=== PATIENT | male | born 1980 | race Hispanic/Latino ===

== ENCOUNTER 2020-04-06 21:05 | Emergency (ER) | payer SELFPAY ==
--- NOTE | 2020-04-06 23:18 | ER ---
Nurse's Notes [facility] Name: Lamin Ludwig Jr Age: 39 yrs Sex: Male : 1980 Arrival Date: 04/06/2020 Time: 21:11 Bed 21 Private MD: Diagnosis: Abuse of non-psychoactive substances-hx of;Paranoid personality disorder Presentation: 04/06 21:12 Chief complaint: [facility] reports he was hallucinating and having a mental episode, em mental health deputy on scene told PD to bring him to the ED, pt A\\T\\Ox4 denies SI/HI, states there are people under his house with gorilla masks. Coronavirus screen: Client denies travel out of the [place] in the last 14 days. Ebola Screen: Patient negative for fever greater than or equal to 101.5 degrees Fahrenheit, and additional compatible Ebola Virus Disease symptoms Patient denies exposure to infectious person. Patient denies travel to an Ebola-affected area in the 21 days before illness onset. No symptoms or risks identified at this time. Initial Sepsis Screen: Does the patient meet any 2 criteria? HR > 90 bpm. No. Patient's initial sepsis screen is negative. Does the patient have a suspected source of infection? No. Patient's initial sepsis screen is negative. Risk Assessment: Do you want to hurt yourself or someone else? Patient reports no desire to harm self or others. Onset of symptoms was April 06, 2020. 21:12 Method Of Arrival: Law Enforcement: [facility] em 21:12 Acuity: AARON 2 em Historical: - Allergies: 21:16 No Known Allergies; em - PMHx: 21:16 None; em - PSHx: 21:16 None; em - Immunization history:: Adult Immunizations up to date. - Social history:: Smoking status: Patient reports the use of cigarette tobacco products, smokes one pack cigarettes per day. Screenin:12 Abuse screen: Denies threats or abuse. Nutritional screening: No deficits noted. em Tuberculosis screening: No symptoms or risk factors identified. Fall Risk None identified. Assessment: 21:12 General: Appears in no apparent distress. comfortable, unkempt, Behavior is calm, em cooperative. Pain: Denies pain. Neuro: Level of Consciousness is awake, alert, obeys commands, Oriented to person, place, time, situation, Appropriate for age. Cardiovascular: Capillary refill < 3 seconds Patient's skin is warm and dry. Respiratory: Airway is patent Respiratory effort is even, unlabored, Respiratory pattern is regular, symmetrical. Derm: Skin is intact, is healthy with good turgor, Skin is pink, warm \\T\\ dry. Musculoskeletal: Capillary refill < 3 seconds, Range of motion: intact in all extremities. 21:37 Reassessment: refuses IV and blood work because doesn't want anyone to have record of em it. Psych: 21:12 Camp Suicide Severity Screening: In the past month, have you wished you were em or wished you could go to sleep and not wake up? Patient responds "No." "In the past month, have you actually had any thoughts of killing yourself?" Patient responds "no." "In your lifetime, have you ever done anything, started to do anything, or prepared to do anything to end your life?" Patient responds "no.". Subjective: Delusions are denied, Hallucinations are denied. Objective: Patient is cooperative. Interventions: Searched person for dangerous items. Suicide Risk Assessment: Sad Person Scale: Sex of patient: Male: Score 1 point. Age of patient: Score 0 point if patient falls outside of specified age parameters. Pt denies substance abuse. Commitment: Patient will be a voluntary commitment. Vital Signs: 21:12 BP 138 / 92; Pulse 108; Resp 18; Temp 97.8(O); Pulse Ox 97% on R/A; Weight 117.93 kg; em Height 5 ft. 11 in. (180.34 cm); Pain 0/10; 21:12 Body Mass Index 36.26 (117.93 kg, 180.34 cm) em ED Course: 21:11 Patient arrived in ED. em 21:12 Choco Landis MD is Attending Physician. kirby 21:12 Patient has correct armband on for positive identification. em 21:15 Triage completed. em 21:16 Arm band placed on. em 21:17 Harsha Mederos, MACO is Primary Nurse. em 23:17 Ar Amaral MD is Referral Physician. kirby 23:37 Patient did not have IV access during this emergency room visit. em 23:37 No provider procedures requiring assistance completed. em Administered Medications: 23:19 Not Given (Patient Refused): NS 0.9% 1000 ml IV at 1 bolus Per protocol; 1000 mL bolus em Outcome: 23:17 Discharge ordered by . kirby 23:37 Discharged to home ambulatory, with family. em 23:37 Condition: stable 23:37 Discharge instructions given to patient, family, Instructed on discharge instructions, follow up and referral plans. Demonstrated understanding of instructions, follow-up care. 23:39 Patient left the ED. em Signatures: Choco Landis MD MD cha Munoz, Edgar, RN RN em
--- NOTE | 2020-04-06 23:18 | EDPHYS ---
Physician Documentation [facility] Name: Lamin Ludwig Jr Age: 39 yrs Sex: Male : 1980 Arrival Date: 04/06/2020 Time: 21:11 Bed 21 Private MD: ED Physician Choco Landis HPI: 04/06 23:08 This 39 yrs old Male presents to ER via Law Enforcement with complaints of kirby Psych Problem. 23:08 The patient presents to the emergency department with paranoia. Onset: The kirby symptoms/episode began/occurred yesterday. Past psychiatric history: Prior diagnosis: no previous psychiatric diagnosis known. Associated signs and symptoms: Pertinent positives; hallucinations, paranoia. Severity of symptoms: At their worst the symptoms were mild in the emergency department the symptoms are unchanged. It is unknown whether or not the patient has had similar symptoms in the past. Historical: - Allergies: 21:16 No Known Allergies; em - PMHx: 21:16 None; em - PSHx: 21:16 None; em - Immunization history:: Adult Immunizations up to date. - Social history:: Smoking status: Patient reports the use of cigarette tobacco products, smokes one pack cigarettes per day. ROS: 23:11 Constitutional: Negative for fever, chills, and weight loss, Eyes: Negative for injury, kirby pain, redness, and discharge, ENT: Negative for injury, pain, and discharge, Neck: Negative for injury, pain, and swelling, Cardiovascular: Negative for chest pain, palpitations, and edema, Respiratory: Negative for shortness of breath, cough, wheezing, and pleuritic chest pain, Abdomen/GI: Negative for abdominal pain, nausea, vomiting, diarrhea, and constipation, Back: Negative for injury and pain, : Negative for injury, bleeding, discharge, and swelling, MS/Extremity: Negative for injury and deformity, Skin: Negative for injury, rash, and discoloration, Neuro: Negative for headache, weakness, numbness, tingling, and seizure, Allergy/Immunology: Negative for hives, rash, and allergies, Endocrine: Negative for neck swelling, polydipsia, polyuria, polyphagia, and marked weight changes, Hematologic/Lymphatic: Negative for swollen nodes, abnormal bleeding, and unusual bruising. 23:11 Psych: Positive for visual hallucinations, not homicidal, not suicidal, alert and oriented x 4. Exam: 23:12 Constitutional: This is a well developed, well nourished patient who is awake, alert, kirby and in no acute distress. Head/Face: Normocephalic, atraumatic. Eyes: Pupils equal round and reactive to light, extra-ocular motions intact. Lids and lashes normal. Conjunctiva and sclera are non-icteric and not injected. Cornea within normal limits. Periorbital areas with no swelling, redness, or edema. ENT: Nares patent. No nasal discharge, no septal abnormalities noted. Tympanic membranes are normal and external auditory canals are clear. Oropharynx with no redness, swelling, or masses, exudates, or evidence of obstruction, uvula midline. Mucous membranes moist. Neck: Trachea midline, no thyromegaly or masses palpated, and no cervical lymphadenopathy. Supple, full range of motion without nuchal rigidity, or vertebral point tenderness. No Meningismus. Chest/axilla: Normal chest wall appearance and motion. Nontender with no deformity. No lesions are appreciated. Cardiovascular: Regular rate and rhythm with a normal S1 and S2. No gallops, murmurs, or rubs. Normal PMI, no JVD. No pulse deficits. Respiratory: Lungs have equal breath sounds bilaterally, clear to auscultation and percussion. No rales, rhonchi or wheezes noted. No increased work of breathing, no retractions or nasal flaring. Abdomen/GI: Soft, non-tender, with normal bowel sounds. No distension or tympany. No guarding or rebound. No evidence of tenderness throughout. Back: No spinal tenderness. No costovertebral tenderness. Full range of motion. Male : Normal genitalia with no discharge or lesions. Skin: Warm, dry with normal turgor. Normal color with no rashes, no lesions, and no evidence of cellulitis. MS/ Extremity: Pulses equal, no cyanosis. Neurovascular intact. Full, normal range of motion. Neuro: Awake and alert, GCS 15, oriented to person, place, time, and situation. Cranial nerves II-XII grossly intact. Motor strength 5/5 in all extremities. Sensory grossly intact. Cerebellar exam normal. Normal gait. 23:12 Psych: Behavior/mood is pleasant, cooperative, Affect is animated, Oriented to person, place, time, Patient has no thoughts/intents to harm self or others. Judgement / Insight is normal. Memory is normal. Delusions/hallucinations are present and described as believes someone under house, mom states drug use, patient denies, wont let urine be drawn and sent, refuses all labs, dw mom, states crack use in past. Vital Signs: 21:12 BP 138 / 92; Pulse 108; Resp 18; Temp 97.8(O); Pulse Ox 97% on R/A; Weight 117.93 kg; em Height 5 ft. 11 in. (180.34 cm); Pain 0/10; 21:12 Body Mass Index 36.26 (117.93 kg, 180.34 cm) em MDM: 21:12 Patient medically screened. kirby 23:15 Differential diagnosis: drug withdrawal. acute psychotic break, depression, psychosis kirby secondary to non-compliance. Data reviewed: vital signs, nurses notes, old medical records. Data interpreted: police officer booking: rate is 99 beats/min, rhythm is regular, Pulse oximetry: on room air is 97 %. Test interpretation: by ED physician or midlevel provider: not applicable. Counseling: I had a detailed discussion with the patient and/or guardian regarding: the historical points, exam findings, and any diagnostic results supporting the discharge/admit diagnosis, the need for outpatient follow up, for definitive care, a family practitioner, a psychiatrist. 04/06 21:13 Order name: Acetaminophen [facility] 04/06 21:13 Order name: Basic Metabolic Panel [facility] 04/06 21:13 Order name: CBC with Diff [facility] 04/06 21:13 Order name: ETOH Level [facility] Administered Medications: 23:19 Not Given (Patient Refused): NS 0.9% 1000 ml IV at 1 bolus Per protocol; 1000 mL bolus em Disposition: 04/06/20 23:17 Discharged to Home. Impression: Abuse of non-psychoactive substances - hx of, Paranoid personality disorder. - Condition is Stable. - Discharge Instructions: Paranoia, Substance Use Disorder. - Medication Reconciliation Form, Thank You Letter, Antibiotic Education, Prescription Opioid Use form. - Follow up: Private Physician; When: 1 - 2 days; Reason: Recheck today's complaints, Continuance of care, Re-evaluation by your physician. Follow up: Ar Amaral MD; When: 1 - 2 days; Reason: Recheck today's complaints, Re-evaluation by your physician. - Problem is new. - Symptoms have improved. Signatures: Dispatcher [employer] Choco Levine MD MD cha Munoz, Edgar, RN RN em Corrections: (The following items were deleted from the chart) 23:18 21:13 EKG - Nurse/Tech ordered. [facility] 23:18 21:13 IV Saline Lock ordered. [facility] 23:18 21:13 Labs collected and sent ordered. [facility] 23:19 21:13 Urine Dipstick-Ancillary ordered. [facility] em 23:39 23:17 04/06/2020 23:17 Discharged to Home. Impression: Abuse of non-psychoactive em substances - hx of; Paranoid personality disorder. Condition is Stable. Forms are Medication Reconciliation Form, Thank You Letter, Antibiotic Education, Prescription Opioid Use. Follow up: Private Physician; When: 1 - 2 days; Reason: Recheck today's complaints, Continuance of care, Re-evaluation by your physician. Follow up: Ar Amaral; When: 1 - 2 days; Reason: Recheck today's complaints, Re-evaluation by your physician. Problem is new. Symptoms have improved. kirby
[2020-04-06 23:57] VITALS: BP 138/92; TEMP 97.8; O2SAT 97
== END 2020-04-06 23:39 | disposition home or self-care (01) ==
LOC: ER 21:05
DX: F19.10 Other psychoactive substance abuse, uncomplicated (principal); F60.0 Paranoid personality disorder; F17.210 Nicotine dependence, cigarettes, uncomplicated
CPT/HCPCS: 99284

== ENCOUNTER 2021-05-12 20:59 | Emergency (ER) | payer SELFPAY ==
--- OUTSIDE RECORDS SUMMARY | 2021-05-12 21:03 | XMS REPORT | Continuity of Care Document ---
:1980 Author Organization [facility] t Address [address] [place] [address] Care Team Providers Name Role Phone Pcp, Patient Does Not Have A Primary Care Physician +[id number] Doc SANFORD Attending Clinician Unavailable Harlan WEBER S Attending Clinician Problems Condition Condition Condition Status Onset Resolution Last Treating Co mments Source Name Details Category Date Date Treatment Clinician Date Cellulitis Cellulitis Disease Active U nivers of right of right 2-03 ity of upper arm upper arm 00:00: [address] Obesity Obesity Disease Active Univers (BMI (BMI 6-24 ity of 30-39.9) 30-39.9) 00:00: [address] Allergies, Adverse Reactions, Alerts Allergy Allergy Status Severity Reaction(s) Onset Inactive Treating Comm ents Source Name Type Date Date Clinician NO KNOWN Drug Active Univers ALLERGIE Class it of [facility] Social History Social Habit Start Date Stop Date Quantity Comments Source Exposure to Not sure [facility] SARS-CoV-2 (event) Medica l Branch Tobacco use and 2018-04-07 2018-04-07 Never used [facility] exposure 00:00:00 00:00:00 [facility] [place] Sex Ass[birth year] At [birth year] [facility] 00:00:00 00:00:00 Medical Branch Smoking Status Start Date Stop Date Source Current some day smoker 2018-04-07 00:00:00 [facility] Medications Ordered Filled Start Stop Current Ordering Indication Dosage Frequency Signature Comments Components Source Medication Medication Date Date Medication? Clinician (SIG) Name Name NaCl 0.9% 1000mL at 999 Uni vers (NS) bolus 16 02-16 mL/hr, ity of infusion 01:00: 01:38 1,000 mL, Derrick as 1,000 mL 00 :00 IV Medical Infusion, Branch ONCE, 1 dose, On Sun04/19/21 at 1900, STAT Docosahexan Yes Take by Un dhiraj oic 2-06 mouth. ity of Acid-Eicosa 10:43: [place] pent (FISH 53 Medical OIL) Branch 120-180 mg Cap flaxseed Yes Take by [facility] rs oil-omega 2-06 mouth. ity of 3,6,9 1,300 10:43: [place] mg-845 mg 53 Medical -117 mg-117 Branch mg Cap MULTIVITAMI Yes Take by Un dhiraj N ORAL 2-06 mouth. ity of 10:43: [place] 53 Medical Branch sulfamethox Yes [id number] 1{tbl} Take 1 Univers azole-trime 2-06 tablet by ity of oprim 00:00: mouth 2 [place] 800-160 mg 00 (two) Medical per tablet times Branch daily. Vital Signs Vital Name Observation Time Observation Value Comments Source Systolic blood 2021-04-20 01:31:00 134 [facility]Hg[facility] Diastolic blood 2021-04-20 01:31:00 84 mm[Hg] [facility] Heart rate 2021-04-20 01:31:00 83 /min [facility] Respiratory rate 2021-04-20 01:31:00 19 /min [facility] Oxygen saturation in 2021-04-20 01:31:00 96 /min [facility] Arterial blood by [facility] Pulse oximetry Branch Body temperature 2021-04-19 23:16:00 36.67 Pallavi [facility] Body weight 2021-04-19 23:16:00 110.678 kg [facility] BMI 2021-04-19 23:16:00 34.03 kg/m2 [facility] Procedures Procedure Date / Time Performing Clinician Source Performed LIPASE 2021-04-19 23:43:00 Karo [facility] COMP. METABOLIC PANEL 2021-04-19 23:43:00 Karo [facility] ([id number]) [facility] URINE DRUG (IMMUNOASSAY) 2021-04-19 23:43:00 [facility] SCREEN CBC WITH DIFF 2021-04-19 23:43:00 Karo [facility] NOTICE OF PRIVACY 2021-04-19 23:31:55 Doctor Unassigned, No Univ [facility] PRACTICES Name Medical Branch CONSENT/REFUSAL FOR 2021-04-19 23:09:19 Doctor Unassigned, No [facility]REATMENT Name Medical [place] Encounters Start End Encounter Admission Attending Care Care Encounter Source Date/Time Date/Time Type Type Clinicians Facility Department ID 2021-04-19 2021-04-19 Emergency X ASHLEY SANFORD ERT [id number] Univers 17:16:00 19:54:00 KARO nick [facility] 2021-04-19 2021-04-19 Emergency Harlan [facility] [id number] Univers 17:16:00 19:54:00 Karo HARDING [id number] i [facility] [id number] [facility] [id number] [place] [id number] Branch Results Test Description Test Time Test Comments Results Result Comments Source COMP. METABOLIC PANEL (19578) 2021-04-20 00:03:24 Test Item Value Reference Range Interpretation Comme nts NA (test code = 4926701572) 136 mmol/L 135-145 K (test code = 1703974267) 3.6 mmol/L 3.5-5.0 CL (test code = 3455326494) 101 mmol/L 98-108 CO2 TOTAL (test code = 4307380547) 31 mmol/L 23-31 AGAP (test code = 1671848398) 2-16 BUN (test code = 8971520960) 19 mg/dL 7-23 GLUCOSE (test code = 7830579941) 74 mg/dL 70-110 CREATININE (test code = 1.04 mg/dL 0.60-1.25 7110129131) TOTAL BILI (test code = 0.7 mg/dL 0.1-1.3 3659802042) CALCIUM (test code = 3673393516) 8.8 mg/dL 8.6-10.6 T PROTEIN (test code = 3977283606) 7.7 g/dL 6.3-8.2 ALBUMIN (test code = 9906993002) 4.7 g/dL 3.5-5.0 ALK PHOS (test code = 2564044585) 73 U/L 34-122 ALTv (test code = 1742-6) 33 U/L 5-50 AST(SGOT) (test code = 9075787048) 50 U/L 13-40 H eGFR (test code = 2082441821) mL/min/1.73m2 LAYNE (test code = LAYNE) Association of Glomerular Filtration Rate (GFR) and Staging of Kidney Disease* + +-------- + ------+| GFR (mL/min/1.73 m2) ?| With Kidney Damage ?| ?Without Kidney Damage+ +-- + +| ?>90 ?| ?Stage one ?| ? Normal ?+ +------- + -------+| ?60-89 ?| ?Stage two ?| ? Decreased GFR ? + +-------- + ------+| ?30-59 ?| ?Stage three ?| ? Stage three ? + +-------- + ------+| ?15-29 ?| ?Stage four ? | ? Stage four ?+ +------- + -------+| ?<15 (or dialysis) ? ?| ?Stage five ? | ? Stage five ?+ +------- + -------+ *Each stage assumes the associated GFR level has been in effect for at least three months. ?Stages 1 to 5, with or without kidney disease, indicate chronic kidney disease. Notes: Determination of stages one and two (with eGFR >59mL/min/1.73 m2) requires estimation of kidney damage for at least three months as defined by structural or functional abnormalities of the kidney, manifested by either:Pathological abnormalities or Markers of kidney damage (including abnormalities in the composition of the blood or urine or abnormalities in imaging tests). Lab Interpretation (test code = Abnormal 92987-5) [facility]03[facility]09 Test Item Value Reference Range Interpretation Comments LIPASE (test code = 0660728012) 56 U/L 0-220 Lab Interpretation (test code = Normal 01085-7) [facility] WITH [id number] 23:53:23 Test Item Value Reference Range Interpretation Comments WBC (test code = See_Comment [Automated 6690-2) message] The sy stem which generated this result transmitted reference range : 4.20 - 10.70 10*3/?L. The reference range was not used to interpret this result as normal/abnormal . RBC (test code = See_Comment [Automated 789-8) message] The sy stem which generated this result transmitted reference range : 4.26 - 5.52 10*6/?L. The reference range was not used to interpret this result as normal/abnormal . HGB (test code = 14.5 g/dL 12.2-16.4 718-7) HCT (test code = 43.3 % 38.4-49.3 4544-3) MCV (test code = 85.7 fL 81.7-95.6 787-2) MCH (test code = 28.7 pg 26.1-32.7 785-6) MCHC (test code = 33.5 g/dL 31.2-35.0 786-4) RDW-SD (test code = 40.6 fL 38.5-51.6 27125-7) RDW-CV (test code = 13.0 % 12.1-15.4 788-0) PLT (test code = See_Comment [Automated 777-3) message] The sy stem which generated this result transmitted reference range : 150 - 328 10*3/ ?L. The reference r hadley was not used to interpret this result as normal/abnormal . MPV (test code = 10.6 fL 9.8-13.0 19617-8) NRBC/100 WBC (test See_Comment [Automat ed code = 7864905115) message] The system which generated this result transmitted reference range : 0.0 - 10.0 /100 WBCs. The refer ence range was not u sed to interpret th is result as normal/abnormal . NRBC x10^3 (test code <0.01 See_Comment [Auto mated = 0556061742) message] The s ystem which generated this result transmitted reference range : 10*3/?L. The reference range was not used to interpret this result as normal/abnormal . GRAN MAT (NEUT) % 72.7 % (test code = 770-8) IMM GRAN % (test code 0.40 % = 3747219649) LYMPH % (test code = 13.2 % 736-9) MONO % (test code = 11.9 % 5905-5) EOS % (test code = 1.5 % 713-8) BASO % (test code = 0.3 % 706-2) GRAN MAT x10^3(ANC) 7.19 10*3/uL 1.99-6.95 H (test code = 0312514620) IMM GRAN x10^3 (test 0.04 10*3/uL 0.00-0.06 code = 9731694356) LYMPH x10^3 (test code 1.31 10*3/uL 1.09-3.23 = 731-0) MONO x10^3 (test code 1.18 10*3/uL 0.36-1.02 H = 742-7) EOS x10^3 (test code = 0.15 10*3/uL 0.06-0.53 711-2) BASO x10^3 (test code 0.03 10*3/uL 0.01-0.09 = 704-7) Lab Interpretation Abnormal (test code = 57773-9) [facility]"
[2021-05-12] MEDS ORDERED: NA CHLORIDE 0.9% 1,000 ML ONE (21:26)
[2021-05-12] MEDS ORDERED: LORazepam 2 MG/ML VIAL ONE (21:26)
[2021-05-12 21:28] LABS: Urine Blood Trace-intact (Negative); Urine Glucose Negative (Negative); Urine Protein 2+ (Negative); Urine Specific Gravity >=1.030 (1.005-1.030); Urine pH 6.5 (5.0-7.0)
[2021-05-12 21:46] LABS: Barbiturates NEGATIVE (NEGATIVE); Benzodiazepines NEGATIVE (NEGATIVE); Cocaine POSITIVE (NEGATIVE); METHAMPHETAM NEGATIVE (NEGATIVE); Methadone NEGATIVE (NEGATIVE); Opiates NEGATIVE (NEGATIVE); Phencyclidine NEGATIVE (NEGATIVE); THC Cannibis NEGATIVE (NEGATIVE)
[2021-05-12 21:48] LABS: Absolute Lymphocytes (CBC) 0.8 K/uL (0.7-4.9); Hematocrit 42.2 % (39.6-49.0); Lymphocytes % 12.6 % (15.3-44.8); MPV 8.7 fL (7.6-11.3); RBC Red Blood Cell Count 4.88 M/uL (4.33-5.43)
[2021-05-12 22:00] LABS: Protime INR 1.09
[2021-05-12 22:06] LABS: ALT/SGPT 25 U/L (12-78); AST/SGOT 17 U/L (15-37); Albumin 3.8 g/dL (3.4-5.0); BUN Blood Urea Nitrogen 14 mg/dL (7-18); Bicarbonate 28 mmol/L (21-32); Bilirubin Direct 0.1 mg/dL (0-0.2); Bilirubin Total 0.3 mg/dL (0.2-1.0); Glucose Level 113 mg/dL (74-106); Potassium 3.5 mmol/L (3.5-5.1); Protein, Total 7.8 g/dL (6.4-8.2); Sodium Level 142 mmol/L (136-145)
[2021-05-12 22:16] LABS: Alkaline Phosphatase 72 U/L (45-117)
--- NOTE | 2021-05-13 01:05 | EDPHYS ---
Physician Documentation [facility] Name: Lamin Ludwig Jr Age: 40 yrs Sex: Male : 1980 Arrival Date: 05/12/2021 Time: 21:01 Bed 4 Private MD: ED Physician Burak Alanis HPI: 05/12 21:30 This 40 yrs old Male presents to ER via EMS with complaints of Drug Use. cp 21:30 The patient presents to the emergency department with paranoia, a history of substance cp abuse, Type: cocaine, Patient admits to smoking crack today and reports he believes someone is trying to poison him. Onset: The symptoms/episode began/occurred today. Past psychiatric history: Prior diagnosis: no previous psychiatric diagnosis known. 21:30 Associated signs and symptoms: The patient has no apparent associated signs or symptoms.cp Historical: - Allergies: 21:05 No Known Allergies; as6 - Home Meds: 21:05 None [Active]; as6 - PMHx: 21:05 None; as6 - PSHx: 21:05 None; as6 - Immunization history:: Client reports receiving the 2nd dose of the Covid vaccine, moderna 1st and 2nd dose. [employer] for booster . - Social history:: Smoking status: Patient reports the use of cigarette tobacco products. ROS: 21:35 Constitutional: Negative for body aches, chills, fever, poor PO intake. cp 21:35 Eyes: Negative for injury, pain, redness, and discharge. cp 21:35 Cardiovascular: Negative for chest pain. 21:35 Respiratory: Negative for cough, shortness of breath, wheezing. 21:35 Abdomen/GI: Negative for abdominal pain, nausea, vomiting, and diarrhea. 21:35 Neuro: Negative for headache, weakness. 21:35 Psych: Positive for anxiety, paranoia. 21:35 All other systems are negative. cp Exam: 21:15 ECG was reviewed by the Attending Physician. cp 21:40 Constitutional: The patient appears in no acute distress, alert, awake, cp non-diaphoretic, non-toxic, well developed, well nourished, anxious. 21:40 Head/Face: Normocephalic, atraumatic. cp 21:40 Eyes: Periorbital structures: appear normal, Conjunctiva: normal, no exudate, no injection, Sclera: no appreciated abnormality, Lids and lashes: appear normal, bilaterally. 21:40 ENT: External ear(s): are unremarkable, Nose: is normal, Mouth: Lips: moist, Oral mucosa: pink and intact, moist, Posterior pharynx: Airway: no evidence of obstruction, patent. 21:40 Chest/axilla: Inspection: normal. 21:40 Cardiovascular: Rate: tachycardic, Rhythm: regular, Edema: is not appreciated, JVD: is not appreciated. 21:40 Respiratory: the patient does not display signs of respiratory distress, Respirations: normal, no use of accessory muscles, no retractions, labored breathing, is not present, Breath sounds: are clear throughout, no decreased breath sounds, no stridor, no wheezing. 21:40 Abdomen/GI: Inspection: abdomen appears normal, Palpation: abdomen is soft and non-tender, in all quadrants. 21:40 Neuro: Orientation: to person, place, situation, Mentation: able to follow commands, Motor: moves all fours, strength is normal, Sensation: no obvious gross deficits. 21:40 Psych: Behavior/mood is cooperative, paranoid. Affect is calm, Patient has no thoughts/intents to harm self or others. Vital Signs: 21:01 BP 128 / 90; Pulse 126; Resp 21 S; Temp 98.1(O); Pulse Ox 96% on R/A; Weight 122.47 kg as6 (R); Height 5 ft. 11 in. (180.34 cm) (R); Pain 0/10; 22:15 BP 140 / 103; Pulse 109; Resp 20 S; Pulse Ox 98% on R/A; as6 23:15 BP 138 / 86; Pulse 97; Resp 15; Pulse Ox 100% on R/A; ll3 05/13 00:30 BP 121 / 78; Pulse 90; Resp 17; Pulse Ox 97% on R/A; ll3 01:26 BP 103 / 92; Pulse 80; Resp 17 S; Pulse Ox 98% on R/A; as6 05/12 21:01 Body Mass Index 37.66 (122.47 kg, 180.34 cm) as6 MDM: 05/12 21:48 Patient medically screened. cp 22:00 Differential diagnosis: drug withdrawal. acute psychotic break, depression, psychosis cp secondary to non-compliance. 23:00 Data reviewed: vital signs, nurses notes, lab test result(s), EKG. cp 05/13 01:00 Counseling: I had a detailed discussion with the patient and/or guardian regarding: the cp historical points, exam findings, and any diagnostic results supporting the discharge/admit diagnosis, lab results, to return to the emergency department if symptoms worsen or persist or if there are any questions or concerns that arise at home. 01:00 Response to treatment: the patient's symptoms have markedly improved after treatment, cp and as a result, I will discharge patient. 05/12 21:20 Order name: Acetaminophen; Complete Time: 22:45 cp 05/12 21:20 Order name: Basic Metabolic Panel; Complete Time: 22:45 cp 05/12 22:45 Interpretation: Normal except: CL 110; GLUC 113; GFR 66. cp 05/12 21:20 Order name: CBC with Diff; Complete Time: 22:45 cp 05/12 22:45 Interpretation: Normal except: KATY% 80.7; LYM% 12.6. cp 05/12 21:20 Order name: ETOH Level; Complete Time: 22:45 cp 05/12 21:20 Order name: Hepatic Function; Complete Time: 22:45 cp 05/12 21:20 Order name: PT-INR; Complete Time: 22:45 cp 05/12 21:20 Order name: Ptt, Activated; Complete Time: 22:45 cp 05/12 21:20 Order name: Salicylate; Complete Time: 22:45 cp 05/12 21:20 Order name: Urine Drug Screen; Complete Time: 22:45 cp 05/12 22:46 Interpretation: Normal except: BHARAT POSITIVE. cp 05/12 21:20 Order name: EKG; Complete Time: 21:21 cp 05/12 21:20 Order name: EKG - Nurse/Tech; Complete Time: 21:20 cp 05/12 21:28 Order name: Urine Dipstick-Ancillary; Complete Time: 22:45 EDMS 05/12 21:20 Order name: IV Saline Lock; Complete Time: 21:20 cp 05/12 21:20 Order name: Labs collected and sent; Complete Time: 21:35 cp 05/12 21:20 Order name: Suicide Screening ([place]); Complete Time: 21:30 cp 05/12 21:20 Order name: Urine Dipstick-Ancillary (obtain specimen); Complete Time: 21:29 cp EC/10 21:15 Rate is 113 beats/min. Rhythm is regular. KS interval is normal. QRS interval is cp normal. QT interval is normal. Interpreted by me. Reviewed by me. Administered Medications: :29 Drug: NS 0.9% 1000 ml Route: IV; Rate: 1 bolus; Site: left antecubital; as6 05/13 01:26 Follow up: Response: No adverse reaction; IV Status: Completed infusion; IV Intake: as6 1000ml 05/12 21:29 Drug: Ativan (LORazepam) 1 mg Route: IVP; Site: left antecubital; as6 05/13 01:26 Follow up: Response: No adverse reaction as6 Disposition Summary: 05/13/21 01:04 Discharge Ordered Location: Home cp Problem: new cp Symptoms: have improved cp Condition: Stable cp Diagnosis - Cocaine abuse with cocaine-induced anxiety disorder cp Followup: cp - With: Private Physician - When: 1 - 2 days - Reason: Recheck today's complaints Discharge Instructions: - Discharge Summary Sheet cp - Finding Treatment for Addiction cp - Cocaine Use Disorder cp Forms: - Medication Reconciliation Form cp - Thank You Letter cp - Antibiotic Education cp - Prescription Opioid Use cp Addendum: 05/15/2021 19:15 Co-signature as Attending Physician, Burak Alanis MD. [facility] Signatures: Dispatcher [employer] EDMS Choco Vasquez PA PA cp Burak Alanis MD MD mh7 Haile Mckeon RN RN as6 Corrections: (The following items were deleted from the chart) 05/13 01:01 01:01 This 40 yrs old Male presents to ER via EMS with complaints of Drug Use. cp cp 01:03 05/12 21:15 Cardiovascular: Rate: tachycardic, Rhythm: regular, Heart sounds: murmur, cp not appreciated, Edema: is not appreciated, JVD: is not appreciated, cp
--- NOTE | 2021-05-13 01:05 | ER ---
Nurse's Notes [facility] Name: Lamin Ludwig Jr Age: 40 yrs Sex: Male : 1980 Arrival Date: 05/12/2021 Time: 21:01 Bed 4 Private MD: Diagnosis: Cocaine abuse with cocaine-induced anxiety disorder Presentation: 05/12 21:01 Chief complaint: Patient states: "I smoked some crack, they are trying to poison me and as6 kill me" EMS states: called out for inhalation of crack cocaine. on seen pt was tachycardiac and diaphoretic. Coronavirus screen: At this time, the client does not indicate any symptoms associated with coronavirus-19. Ebola Screen: No symptoms or risks identified at this time. Initial Sepsis Screen: Does the patient meet any 2 criteria? No. Patient's initial sepsis screen is negative. Does the patient have a suspected source of infection? No. Patient's initial sepsis screen is negative. Risk Assessment: Do you want to hurt yourself or someone else? Patient reports no desire to harm self or others. Onset of symptoms was May 12, 2021. Care prior to arrival: IV initiated. 18 GA, in the left antecubital area, Glucose check: 127. 21:01 Method Of Arrival: EMS: [facility] as6 21:01 Acuity: AARON 3 as6 Historical: - Allergies: 21:05 No Known Allergies; as6 - Home Meds: 21:05 None [Active]; as6 - PMHx: 21:05 None; as6 - PSHx: 21:05 None; as6 - Immunization history:: Client reports receiving the 2nd dose of the Covid vaccine, moderna 1st and 2nd dose. [employer] for booster . - Social history:: Smoking status: Patient reports the use of cigarette tobacco products. Screenin:08 Abuse screen: Denies threats or abuse. Denies injuries from another. Nutritional as6 screening: No deficits noted. Tuberculosis screening: No symptoms or risk factors identified. Fall Risk None identified. Assessment: 21:07 General: Appears in no apparent distress. Behavior is cooperative, anxious. Pain: as6 Denies pain. Neuro: Level of Consciousness is awake, alert, obeys commands, Oriented to person, place, time, situation, Reports headache. Cardiovascular: Rhythm is sinus tachycardia. Respiratory: Reports shortness of breath Airway is patent Trachea midline Respiratory effort is even, unlabored, Respiratory pattern is regular, symmetrical. Derm: Skin is intact, Skin is clammy. 22:15 General: Behavior is anxious. as6 Vital Signs: 21:01 BP 128 / 90; Pulse 126; Resp 21 S; Temp 98.1(O); Pulse Ox 96% on R/A; Weight 122.47 kg as6 (R); Height 5 ft. 11 in. (180.34 cm) (R); Pain 0/10; 22:15 BP 140 / 103; Pulse 109; Resp 20 S; Pulse Ox 98% on R/A; as6 23:15 BP 138 / 86; Pulse 97; Resp 15; Pulse Ox 100% on R/A; ll3 03 00:30 BP 121 / 78; Pulse 90; Resp 17; Pulse Ox 97% on R/A; ll3 01:26 BP 103 / 92; Pulse 80; Resp 17 S; Pulse Ox 98% on R/A; as6 05/12 21:01 Body Mass Index 37.66 (122.47 kg, 180.34 cm) as6 ED Course: 05/12 12:29 Maintain EMS IV. Dressing intact. Good blood return noted. Site clean \\T\\ dry. Gauge \\T\\ as 6 site: 18G LAC. 21:01 Patient arrived in ED. as6 21:05 Triage completed. as6 21:06 Arm band placed on. as6 21:07 Haile Mckeon RN is Primary Nurse. as6 21:07 Choco Vasquez PA is PHCP. cp 21:07 Burak Alanis MD is Attending Physician. cp 21:08 Placed in gown. Bed in low position. Call light in reach. Side rails up X2. Cardiac as6 monitor on. Pulse ox on. NIBP on. Warm blanket given. 21:29 Urine Drug Screen Sent. as6 21:35 Acetaminophen Sent. as6 21:35 Basic Metabolic Panel Sent. as6 21:35 CBC with Diff Sent. 6 21:35 ETOH Level Sent. as6 21:35 Hepatic Function Sent. as6 21:35 PT-INR Sent. 21:35 Ptt, Activated Sent. as6 21:35 Salicylate Sent. as6 21:35 Urine Drug Screen Sent. as6 22:17 Diet: Patient given water. as6 05/13 01:27 No provider procedures requiring assistance completed. IV discontinued, intact, as6 bleeding controlled, No redness/swelling at site. Pressure dressing applied. Administered Medications: 05/12 21:29 Drug: NS 0.9% 1000 ml Route: IV; Rate: 1 bolus; Site: left antecubital; as6 05/13 01:26 Follow up: Response: No adverse reaction; IV Status: Completed infusion; IV Intake: as6 1000ml 05/12 21:29 Drug: Ativan (LORazepam) 1 mg Route: IVP; Site: left antecubital; as6 05/13 01:26 Follow up: Response: No adverse reaction as6 Intake: 01:26 IV: 1000ml; Total: 1000ml. as6 Outcome: 01:04 Discharge ordered by . ervin 01:27 Discharged to home ambulatory. as6 01:27 Condition: stable 01:27 Discharge instructions given to patient, Instructed on discharge instructions, follow up and referral plans. Demonstrated understanding of instructions, follow-up care. 01:27 Patient left the ED. as6 Signatures: Choco Vasquez PA PA cp Slawson, Ashby, RN RN as6 Joseph Antunez RN RN ll3
[2021-05-13 01:52] VITALS: TEMP 98.1
[2021-05-13 01:59] VITALS: BP 103/92; O2SAT 98
--- NOTE | 2021-05-13 13:09 | EKG ---
Test Date: 2021-05-12 Test Time: 21:08:18 Preparation Plant Repairer: MIRTA MEASUREMENT RESULTS: Intervals: Rate: 113 RI: 160 QRSD: 92 QT: 340 QTc: 466 [place]: P: 72 RI: 160 QRS: 82 T: 7 INTERPRETIVE STATEMENTS: Sinus tachycardia Cannot rule out Anterior infarct, age undetermined Abnormal ECG No previous ECG available for comparison Electronically Signed On 05-13-21 13:08:02 ATTORNEY by Cayetano Raza
== END 2021-05-13 01:27 | disposition home or self-care (01) ==
LOC: ER 20:59
DX: F14.180 Cocaine abuse with cocaine-induced anxiety disorder (principal); Z72.0 Tobacco use
CPT/HCPCS: 36415; 80048; 80076; 80307; 80320; 80329; 81003; 85025; 85610; 85730; 93005; 96361; 96374; 99284; J7030

== ENCOUNTER 2023-10-02 22:54 | Emergency (ER) | payer SELFPAY ==
--- OUTSIDE RECORDS SUMMARY | 2023-10-02 22:57 | XMS REPORT | Continuity of Care Document ---
Author Name Unknown Address [address] [place] [address] [facility] Address [address] [place] [address] Care Team Providers Care [place] Operator Name Role Phone Pcp, Patient Does Not Have A Primary Care Physic zaira KARO SANFORD S Attending Clinician Unavailable Karo Lanza Attending Clinician [phone] Problems Condition Name Condition Details Condition Category Status Onset Date Resolution Date Last Treatment Date Treating Clinician Comments Source Cellulitis of right upper arm Cellulitis of right upper arm Disease Active 04-07 00:00: 00 [facility] Obesity (BMI 30-39.9) Obesity (BMI 30-39.9) Disease Active 08-26 00:00: 00 [facility] Allergies, Adverse Reactions, Alerts Allergy Name Allergy Type Status Severity Reaction(s) Onset Date Inactive Date Treating Clinician Comments Source NO KNOWN ALLERGIE S Drug Class Active [facility] Social History Social Habit Start Date Stop Date Quantity Comments Source Exposure to SARS-CoV-2 (event) Not sure [facility] Tobacco use and exposure 2018-04-07 00:00:00 2018-04-07 00:00:00 Never used [facility] Sex Assigned At 1980 00:00:00 1980 00[birth year]00:00 [facility] Smoking Status Start Date Stop Date Source Current some day smoker 2018-04-07 00:00:00 [facility] Medications Ordered Medication Name Filled Medication Name Start Date Stop Date Current Medication? Ordering Clinician Indication Dosage Frequency Signature (SIG) Comments Components Source NaCl 0.9% (NS) bolus infusion 1,000 mL 04-20 01:00: 00 04-20 01:38 :00 No 1000mL at 999 mL/hr, 1,000 mL, IV Infusion, ONCE, 1 dose, On Sun04/19/21 at 1900, STAT [facility] Docosahexan oic Acid-Eicosa pent (FISH OIL) 120-180 mg Cap 04-10 10:43: 53 Yes Take by mouth. [facility] flaxseed oil-omega 3,6,9 1,300 mg-845 mg -117 mg-117 mg Cap 04-10 10:43: 53 Yes Take by mouth. [facility] MULTIVITAMI N ORAL 04-10 10:43: 53 Yes Take by mouth. [facility] sulfamethox azole-trime thoprim 800-160 mg per tablet 04-10 00:00: 00 Yes [id number] 1{tbl} Take 1 tablet by mouth 2 (two) times daily. [facility] Vital Signs Vital Name Observation Time Observation Value Comments S ource Systolic blood pressure 2021-04-20 01:31:00 134 mm[Hg] [facility] Diastolic blood pressure 2021-04-20 01:31:00 84 mm[Hg] [facility] Heart rate 2021-04-20 01:31:00 83 /min [facility] Respiratory rate 2021-04-20 01:31:00 19 /min [facility] Oxygen saturation in Arterial blood by Pulse oximetry 2021-04-20 01:31:00 96 /min [facility] Body temperature 2021-04-19 23:16:00 36.67 Pallavi [facility] Body weight 2021-04-19 23:16:00 110.678 kg [facility] BMI 2021-04-19 23:16:00 34.03 kg/m2 [facility] Procedures Procedure Date / Time Performed Performing Clinician Source LIPASE 2021-04-19 23:43:00 Karo Sanford [facility] COMP. METABOLIC PANEL (87696) 2021-04-19 23:43:00 Karo Sanford [facility] URINE DRUG (IMMUNOASSAY) - COMPREHENSIVE DRUG SCREEN 2021-04-19 23:43:00 Karo Sanford [facility] CBC WITH DIFF 2021-04-19 23:43:00 Karo Sanford [facility] NOTICE OF PRIVACY PRACTICES 2021-04-19 23:31:55 Doctor Unassigned, [place] [facility] CONSENT/REFUSAL FOR DIAGNOSIS AND TREATMENT 2021-04-19 23:09:19 Doctor Unassigned, [place] [facility] Encounters Start Date/Time End Date/Time Encounter Type Admission Type Attending [facility] Care Facility Care Department Encounter ID Source 2021-04-19 17:16:00 2021-04-19 19:54:00 Emergency X [facility]ARO [facility] ERT [id number] [facility] 2021-04-19 17:16:00 2021-04-19 19:54:00 Emergency Karo Sanford [facility] [id number] [facility] Results Test Description Test Time Test Comments Results Result Co mments Source [facility]:03:09* Test Item Value Reference Range Interpretation Comme nts LIPASE (test code = 7987408555) 56 U/L 0-220 Lab Interpretation (test cod e = 59375-3) Normal [facility] [id number] 23:53:23* Test Item Value Reference Range Interpretation Comme nts WBC (test code = 6690-2) See_Comment [Automated messa ge] The system which generated this result transmitted reference range: 4.20 - 10.70 10*3/?L. The reference range was not used to interpret this result as normal/abnormal. RBC (test code = 789-8) See_Comment [Automated messa ge] The system which generated this result transmitted reference range: 4.26 - 5.52 10*6/?L. The reference range was not used to interpret this result as normal/abnormal. HGB (test code = 718-7) 14.5 g/dL 12.2-16.4 HCT (test code = 4544-3) 43.3 % 38.4-49.3 MCV (test code = 787-2) 85.7 fL 81.7-95.6 MCH (test code = 785-6) 28.7 pg 26.1-32.7 MCHC (test code = 786-4) 33.5 g/dL 31.2-35.0 RDW-SD (test code = 98167-0) 40.6 fL 38.5-51.6 RDW-CV (test code = 788-0) 13.0 % 12.1-15.4 PLT (test code = 777-3) See_Comment [Automated [employer] ge] The system which generated this result transmitted reference range: 150 - 328 10*3/?L. The reference range was not used to interpret this result as normal/abnormal. MPV (test code = 86319-1) 10.6 fL 9.8-13.0 NRBC/100 WBC (test code = 7484404183) See_Comment [Automated [employer] ssage] The system which generated this result transmitted reference range: 0.0 - 10.0 /100 WBCs. The reference range was not used to interpret this result as normal/abnormal. NRBC x10^3 (test code = 3375451745) <0.01 See_Comment [Automated [employer]] The system which generated this result transmitted reference range: 10*3/?L. The reference range was not used to interpret this result as normal/abnormal. GRAN MAT (NEUT) % (test code = 770-8) 72.7 % IMM GRAN % (test code = 9158072215) 0.40 % LYMPH % (test code = 736-9) 13.2 % MONO % (test code = 5905-5) 11.9 % EOS % (test code = 713-8) 1.5 % BASO % (test code = 706-2) 0.3 % GRAN MAT x10^3(ANC) (test code = 6337241690) 7.19 10*3/uL 1.99-6.95 H IMM GRAN x10^3 (test code = 5728143244) 0.04 10*3/uL 0.00-0.06 LYMPH x10^3 (test code = 731-0) 1.31 10*3/uL 1.09-3.23 MONO x10^3 (test code = 742-7) 1.18 10*3/uL 0.36-1.02 H EOS x10^3 (test code = 711-2) 0.15 10*3/uL 0.06-0.53 BASO x10^3 (test code = 704-7) 0.03 10*3/uL 0.01-0.09 Lab Interpretation (test code = 73347-8) Abnormal [facility]
[2023-10-02] MEDS ORDERED: SMZ./TMP. 800/160 MG TABLET ONE (23:37)
[2023-10-02] MEDS ORDERED: LIDOCAINE 1% 20 ML MDV ONE (23:37)
--- NOTE | 2023-10-03 00:09 | EDPHYS ---
Physician Documentation [facility] Name: Lamin Ludwig Jr Age: 42 yrs Sex: Male : 1980 Arrival Date: 10/02/2023 Time: 22:54 Bed 12 Private MD: ED Physician Louie Flores HPI: 10/01 23:30 This 42 yrs old Male presents to ER via Ambulatory with complaints of redness ec2 and pain to upper back. 23:30 Patient arrives today for evaluation of redness and swelling to the left upper back. ec2 States that he has been having this for several weeks. Reports no fevers or chills, no nausea or vomiting.. Historical: - Allergies: 23:22 No Known Allergies; kl - Home Meds: 23:22 None [Active]; kl - PMHx: 23:22 None; kl - PSHx: 23:22 None; kl - Immunization history:: Adult Immunizations not immunized. - Infectious Disease History:: Denies. - Social history:: Smoking status: Patient denies any tobacco usage or history of. ROS: 23:30 Constitutional: as per hpi ec2 Exam: 23:30 Constitutional: GEN: NAD Head: atraumatic Eyes: EOMI Ears: External ears are ec2 normal. CV: regular rate LUNGS: no respiratory distress ABD: non-distended SKIN: Left upper back with erythema, fluctuance appreciated. MSK: no evidence of trauma NEURO: moves all extremities equally Vital Signs: 23:20 BP 137 / 71; Pulse 86; Resp 18; Temp 97.9(O); Pulse Ox 99% ; Weight 136.08 kg (R); kl Height 5 ft. 11 in. ; Pain 03/14; 10/02 00:17 BP 128 / 76; Pulse 72; Resp 19; Temp 98(O); Pulse Ox 97% ; kl 10/01 23:20 Body Mass Index 41.84 (136.08 kg, 180.34 cm) 10/01 23:20 Pain Scale: Adult kl Procedures: 10/01 23:30 Ultrasound: Type: soft tissue, performed by the emergency department physician, Soft ec2 tissue ultrasound of the left upper back shows approximately 2 cm x 3 cm abscess with surrounding cobblestoning.. 10/02 00:08 I \T\ D: Incision and drainage was performed for an abscess of the left back Prepped with ec2 alcohol, Anesthetized with 10 ml's 1% Lidocaine. Incised with #11 blade. Drained large amount purulent fluid. Dressing: sterile 4x4 gauze, the patient tolerated the procedure well. MDM: 10/01 23:22 Patient medically screened. ec2 23:30 Data reviewed: vital signs. ED course: Patient arrives today for evaluation of soft ec2 tissue swelling along with redness. Examination remarkable for skin findings as above. I performed bedside ultrasound which showed an abscess. I will perform bedside incision and drainage and treat the patient for abscess, cellulitis. Considered other process such as Fasciitis, abscess, cellulitis. 10/02 00:08 ED course: I performed bedside incision and drainage without issue. Will discharge ec2 home. Return precautions given. Presentations with abscess, cellulitis.. Administered Medications: 10/01 23:43 Drug: Trimethoprim-Sulfamethoxazole PO (160 mg-800 mg (DS) 1 tablet PO once Route: PO; 10/02 00:04 Drug: Lidocaine-Epinephrine Infiltration -1%: (1:100,000) 20 ml 20 ml Infiltration once; to bedside {Note: administered by Dr Flores.} Volume: 20 ml; Route: Infiltration; Disposition Summary: 10/03/23 00:09 Discharge Ordered Notes: Location: Home ec2 Condition: Stable ec2 Diagnosis - Abscess ec2 - Cellulitis of back [any part except buttock] ec2 Followup: ec2 - With: Private Physician - When: - Reason: Recheck today's complaints Discharge Instructions: - Discharge Summary Sheet ec2 - Cellulitis, Adult ec2 Forms: - Medication Reconciliation Form ec2 - Antibiotic Education ec2 - Prescription Opioid Use ec2 - Patient Portal Instructions ec2 - Leadership Thank You Letter ec2 Prescriptions: - Bactrim DS 800-160 mg Oral Tablet - take 1 tablet ORAL route every 12 hours for 7 days; 14 tablet; Refills: 0, ec2 Product Selection Permitted Signatures: Francie Shoemaker RN RN kl Corral, Edwin, MD MD ec2
--- NOTE | 2023-10-03 00:09 | ER ---
Nurse's Notes [facility] Name: Lamin Ludwig Jr Age: 42 yrs Sex: Male : 1980 Arrival Date: 10/02/2023 Time: 22:54 Bed 12 Private MD: Diagnosis: Abscess;Cellulitis of back [any part except buttock] Presentation: 10/01 23:20 Chief complaint: Patient states: reddened raised area to left upper back x 3 weeks kl reports increase in size reports no increase in pain. Coronavirus screen: Vaccine status: Patient reports being unvaccinated. Ebola Screen: Patient negative for fever greater than or equal to 101.5 degrees Fahrenheit, and additional compatible Ebola Virus Disease symptoms. Initial Sepsis Screen: Does the patient meet any 2 criteria? No. Patient's initial sepsis screen is negative. Does the patient have a suspected source of infection? No. Patient's initial sepsis screen is negative. Risk Assessment: Do you want to hurt yourself or someone else? Patient reports no desire to harm self or others. 23:20 Method Of Arrival: Ambulatory kl 23:25 Acuity: AARON 3 Triage Assessment: 23:24 General: Appears in no apparent distress. Behavior is calm, cooperative. Pain: kl Complains of pain in left posterior upper chest wall. Derm: Historical: - Allergies: 23:22 No Known Allergies; kl - Home Meds: 23:22 None [Active]; kl - PMHx: 23:22 None; kl - PSHx: 23:22 None; kl - Immunization history:: Adult Immunizations not immunized. - Infectious Disease History:: Denies. - Social history:: Smoking status: Patient denies any tobacco usage or history of. Screenin:45 [facility] ED Fall Risk Assessment (Adult) History of falling in the last 3 months, including since admission No falls in past 3 months (0 pts) Confusion or Disorientation No (0 pts) Intoxicated or Sedated No (0 pts) Impaired Gait No (0 pts) Mobility Assist Device Used No (0 pt) Altered Elimination No (0 pt) Score/Fall Risk Level 0 - 2 = Low Risk Oriented to surroundings, Maintained a safe environment. Abuse screen: Denies threats or abuse. Nutritional screening: No deficits noted. Tuberculosis screening: No symptoms or risk factors identified. Assessment: 23:43 General: Appears in no apparent distress. Behavior is calm, cooperative. Pain: Complains of pain in left posterior upper chest wall Pain currently is 1 out of 10 on a pain scale. at worst was 5 out of 10 on a pain scale. Aggravated by increased activity. Neuro: No deficits noted. Cardiovascular: No deficits noted. Respiratory: No deficits noted. Airway is patent Trachea midline Respiratory effort is even, unlabored, Respiratory pattern is regular, symmetrical. GI: No deficits noted. No signs and/or symptoms were reported involving the gastrointestinal system. : No deficits noted. No signs and/or symptoms were reported regarding the genitourinary system. EENT: No deficits noted. No signs and/or symptoms were reported regarding the EENT system. Derm: Abscess located on left posterior upper chest wall is quarter sized. Vital Signs: 23:20 BP 137 / 71; Pulse 86; Resp 18; Temp 97.9(O); Pulse Ox 99% ; Weight 136.08 kg (R); Height 5 ft. 11 in. ; Pain 03/14; 10/02 00:17 BP 128 / 76; Pulse 72; Resp 19; Temp 98(O); Pulse Ox 97% ; kl 10/01 23:20 Body Mass Index 41.84 (136.08 kg, 180.34 cm) 10/01 23:20 Pain Scale: Adult ED Course: 10/01 23:04 Patient arrived in ED. ec2 23:04 Louie Flores MD is Attending Physician. ec2 23:22 Triage completed. 23:45 Patient has correct armband on for positive identification. Provided Education on:. 23:46 Assist provider with I \T\ D: of an abscess on Set up I\T\D tray. Performed by Louie hoffman MD. Patient did not have IV access during this emergency room visit. 10/02 00:18 Dressings: 4X4s X 2; posterior chest. Administered Medications: 10/01 23:43 Drug: Trimethoprim-Sulfamethoxazole PO (160 mg-800 mg (DS) 1 tablet PO once Route: PO; 10/02 00:04 Drug: Lidocaine-Epinephrine Infiltration -1%: (1:100,000) 20 ml 20 ml Infiltration once; to bedside {Note: administered by Dr Flores.} Volume: 20 ml; Route: Infiltration; Medication: 10/01 23:45 VIS not applicable for this client. kl Outcome: 10/02 00:09 Discharge ordered by . ec2 00:18 Discharged to home ambulatory, with significant other, kl 00:18 Condition: stable 00:18 Discharge instructions given to patient, significant other, Instructed on discharge instructions, follow up and referral plans. medication usage, wound care, Demonstrated understanding of instructions, follow-up care, medications, wound care, Prescriptions given X 1, 00:18 Patient left the ED. kl Signatures: Francie Shoemaker RN RN Louie Back MD MD ec2 Corrections: (The following items were deleted from the chart) 10/01 23:25 23:20 Acuity: AARON 4 dalton hoffman
[2023-10-03 07:54] VITALS: BP 128/76; TEMP 98; O2SAT 97
== END 2023-10-03 00:18 | disposition home or self-care (01) ==
LOC: ER 22:54
PROC: 0H96XZZ Drainage of Back Skin, External Approach (ICD-10-PCS; principal; 2023-10-03)
DX: L02.212 Cutaneous abscess of back [any part, except buttock and flank] (principal); L03.312 Cellulitis of back [any part except buttock and flank]
CPT/HCPCS: 99284; J2001